=== PATIENT | male | born 1970 | race Caucasian/White ===

== ENCOUNTER 2018-08-13 06:19 | Emergency (ER) | payer OTHER ==
[~2018-08-13] VITALS: Ht 182.9 cm; Wt 90.7 kg
[~2018-08-13 06:19] MED LIST: ACET325 PO; ACET500 PO; Bactrim Ds Tab1 EACH PO; CEPH500 PO; CITA20 PO; CLIN100S; HYDACE5 PO; IBUP800 PO; Keflex500 MG PO; Neurontin 100100 MG PO; OXYACE5T PO; Prednisone20 MG PO; RXOXYACE PO; TRAM50 PO
[2018-08-13] MEDS ORDERED: Bactrim Ds Tab1 EACH PO (06:43)
== END 2018-08-13 07:06 | disposition home or self-care (01) ==
LOC: ER 06:19
DX: L02.412 Cutaneous abscess of left axilla (principal); I10 Essential (primary) hypertension; F17.210 Nicotine dependence, cigarettes, uncomplicated
CPT/HCPCS: 10060; 99283-25

== ENCOUNTER 2019-11-29 21:20 | Emergency (ER) | payer OTHER ==
[~2019-11-29] VITALS: Ht 182.9 cm; Wt 93.0 kg
== END 2019-11-29 23:47 | disposition home or self-care (01) ==
LOC: ER 21:20
DX: S46.001A Unspecified injury of muscle(s) and tendon(s) of the rotator cuff of right shoulder, initial encounter (principal); I10 Essential (primary) hypertension; F17.210 Nicotine dependence, cigarettes, uncomplicated; Z79.899 Other long term (current) drug therapy; W01.0XXA Fall on same level from slipping, tripping and stumbling without subsequent striking against object, initial encounter
CPT/HCPCS: 73030; 99283-25

== ENCOUNTER 2019-12-14 21:52 | Emergency (ER) | payer OTHER | END 2019-12-14 23:13 | disposition left against medical advice (07) | DX: Z53.21 Procedure and treatment not carried out due to patient leaving prior to being seen by health care provider (principal) ==

== ENCOUNTER 2022-01-18 20:28 | Emergency (ER) | payer OTHER ==
[~2022-01-18] VITALS: Ht 182.9 cm; Wt 95.2 kg
== END 2022-01-18 20:42 | disposition home or self-care (01) ==
LOC: ER 20:28
DX: S46.211A Strain of muscle, fascia and tendon of other parts of biceps, right arm, initial encounter (principal); X58.XXXA Exposure to other specified factors, initial encounter; I10 Essential (primary) hypertension; F17.210 Nicotine dependence, cigarettes, uncomplicated
CPT/HCPCS: 99282

== ENCOUNTER 2022-02-23 14:24 | Emergency (ER) | payer OTHER ==
[~2022-02-23] VITALS: Ht 182.9 cm; Wt 95.2 kg
== END 2022-02-23 15:13 | disposition home or self-care (01) ==
LOC: ER 14:24
DX: U07.1 COVID-19 (principal); I10 Essential (primary) hypertension; F17.210 Nicotine dependence, cigarettes, uncomplicated; Z79.899 Other long term (current) drug therapy
CPT/HCPCS: 99283

== ENCOUNTER 2024-03-24 11:22 | Day surgery (SDC) | payer OTHER ==
[~2024-03-24] VITALS: Ht 175.3 cm; Wt 88.4 kg
[2024-03-24] VITALS (10 sets, daily range): BP systolic 120–148; BP diastolic 85–99
[~2024-03-24 11:22] MED LIST changes: +HYDR1TAB94 PO; +Ibuprofen600 MG PO
[2024-03-24] MEDS ORDERED: Lactated Ringer's 1,000 ML IV SCH (12:05)
[2024-03-24] MEDS ORDERED: CeFAZolin Sodium 2,000 MG in NS 100 ML IV SCH (12:05)
--- NOTE | 2024-03-24 12:24 | NUR ---
PATIENT TRANSFERED TO DAY SURGERY VIA W/C, ACCOMPANIED BY FRIEND, DAVEY. DAVEY GIVEN JEWELRY AND CRUTCHES FOR SAFE KEEPING DURING SURGERY. CLOTHING AND PATIENT BELONGING STOWED UNDER GURNEY WITH LABELED BAG. PATIENT REMOVED SPLINT FROM RLE AND STOWED UNDER BED.
[2024-03-24] MEDS ORDERED: ACET500 PO (12:29)
--- NOTE | 2024-03-24 12:54 | NUR ---
History, Chart, Medications and Allergies reviewed before start of procedure. Patient confirms NPO status and agrees with scheduled surgery. Patient reports eating a Ritz cracker and drinking soda at 0600 today. Will notify anesthesiologist.
[2024-03-24] MEDS ORDERED: propofoL 50 ML IV ONE (13:34)
--- NOTE | 2024-03-24 13:43 | NUR ---
IV ACCESS ACCOMPLISHED BY SHU GUALLPA RN, USING ULTRASOUND TECHNIQUE WITH A 1.88 INCH 20G IV CATHETER. TWO OTHER RNs, ATTEMPTED IV ACCESS FOR A TOTAL OF 4 ATTEMPS.
--- NOTE | 2024-03-24 14:13 | NUR ---
REPORT GIVEN TO BALWINDER IREL[place].
[2024-03-24] MEDS ORDERED: Bupivacaine 0.5% HCl 5 MG/ML 30MLVIAL ONE (14:42)
[2024-03-24] MEDS ORDERED: Midazolam HCl 1MG / ML 2ML Vial ONE (14:55)
[2024-03-24] MEDS ORDERED: Rocuronium Bromide 10 MG/ML 5ML Injection IV ONE (14:55)
[2024-03-24] MEDS ORDERED: FentaNYL Citrate 50 MCG/ML 2 ML Injection ONE (15:12)
[2024-03-24] MEDS ORDERED: Ketorolac Tromethamine 30mg Vial ONE (15:38)
[2024-03-24] MEDS ORDERED: Neostigmine Methylsulfate 5MG/5ML SYR ONE (15:39)
[2024-03-24] MEDS ORDERED: Ondansetron HCl 2 MG / ML 2ML Vial ONE (15:39)
[2024-03-24] MEDS ORDERED: Dexamethasone Sod Phos 10 MG/ML 1ML VIAL ONE (15:39)
[2024-03-24] MEDS ORDERED: Glycopyrrolate 0.2 MG/ML 5ML VIAL ONE (15:39)
--- NOTE | 2024-03-24 15:49 | NUR ---
03/24/24 1549 Musa,Serena WOUND ON RIGHT KNEE PRESENT PRIOR TO ENTRY INTO THE OR WAS CLEANED AND DRESSED WITH XEROFORM, 4X4S, AND TEGADERM.
[2024-03-24] MEDS ORDERED: Sugammadex Sodium 200 MG/2ML SDV (100 MG/ML) ONE (15:53)
[2024-03-24] MEDS ORDERED: OxyCODONE 5 mg/Acetamin 325 mg TABLET PO PRN (16:15)
[2024-03-24] MEDS ORDERED: HYDROmorphone HCl/Pf 1MG SYR ONE (16:33)
--- NOTE | 2024-03-24 16:55 | NUR ---
REPORT RECEIVED FROM AL BRITT. VSS. PT ON RA. PT A&OX4. PT ABLE TO REPOSITION SELF IN BED. PT REQUESTING PO FOOD AND FLUIDS AND TOLERATING THEM WELL. PT REPORTS 3/10 ACHING PAIN TO RIGHT ANKLE THAT IS TOLERABLE. PT DENIES NAUSEA OR OTHER DISCOMFORTS. PT HAS STEPHEN WRAP TO RIGHT ANKLE THAT IS C/D/I WITHOUT REDNESS, DRAINAGE, OR SWELLING. PT HAS BRISK CAP REFILL <3 SECS. PT CAN WIGGLE TOES ON OPERATE SIDE FREELY. TOES ARE PINK AND WARM.
--- NOTE | 2024-03-24 17:18 | NUR ---
Patient up to Ambulate independently. Gait steady. VSS AND CONSISTENT WITH PT BASELINE. PT HAS NO COMPLAINTS AND VERBALIZES READINESS TO GO HOME. Discharge instructions reviewed with patient. Patient verbalizes understanding. Copy given to patient to take home. Dressing to procedure site clean, dry, intact with no visible drainage, swelling, erythema or bruising noted. PT HAS BRISK CAP REFILL AND CAN WIGGLE TOES FREELY ON OPERATIVE SIDE. Patient States Post-Procedure ride home has been arranged. Discharged via wheelchair to private car for ride home. PT BELONGINGS RETURNED TO PT.
== END 2024-03-24 17:27 | disposition home or self-care (01) ==
LOC: ORSCMMR 11:22
PROVIDERS: Orthopaedic Surgery
PROC: 0SS Lower Joints, Reposition (ICD-10-PCS; principal; 2024-03-24 13:30)
DX: S93.431A Sprain of tibiofibular ligament of right ankle, initial encounter (principal); S82.401A Unspecified fracture of shaft of right fibula, initial encounter for closed fracture; I10 Essential (primary) hypertension; Z79.899 Other long term (current) drug therapy; Z87.891 Personal history of nicotine dependence
CPT/HCPCS: C1776; J0690; J1100; J1170; J1885; J2250; J2405; J2704; J2710; J3010; J7120